=== PATIENT | female | born 1970 | race Caucasian/White ===

== ENCOUNTER 2016-04-25 10:45 | Emergency (ER) | payer MEDICAID ==
[2016-04-25] MEDS ORDERED: ALBUTEROL NEB 2.5 MG/3 ML INH STA (11:47)
[2016-04-25] MEDS ORDERED: DEXAMETHASONE 10 MG/ML VIAL PO STA (11:47)
[2016-04-25] MEDS ORDERED: HYDROcod/ACETAM 5/325 MG TABLET PO STA (11:47)
[2016-04-25] MEDS ORDERED: CHERRY SYRUP 10 ML UDC PO ONE (11:54)
[2016-04-25] MEDS ORDERED: DEXAMETHASONE 10 MG/ML VIAL ONE (11:54)
[2016-04-25] MEDS ORDERED: HYDROcod/ACETAM 5/325 MG TABLET ONE (11:54)
[2016-04-25] MEDS ORDERED: ALBUTEROL NEB 2.5 MG/3 ML INH ONE (12:07)
== END 2016-04-25 12:26 | disposition home or self-care (01) ==
DX: J06.9 Acute upper respiratory infection, unspecified (principal); H92.03 Otalgia, bilateral; G40.909 Epilepsy, unspecified, not intractable, without status epilepticus; F17.200 Nicotine dependence, unspecified, uncomplicated
CPT/HCPCS: 94640; 99283; A9270; J7613

== ENCOUNTER 2016-06-11 09:58 | Emergency (ER) | payer MEDICAID | END 2016-06-11 12:27 | disposition home or self-care (01) | DX: M54.5 Low back pain (principal); R03.0 Elevated blood-pressure reading, without diagnosis of hypertension; G40.909 Epilepsy, unspecified, not intractable, without status epilepticus; F17.200 Nicotine dependence, unspecified, uncomplicated ==

== ENCOUNTER 2016-08-13 16:00 | Outpatient (CLI) | payer MEDICAID ==
--- NOTE | 2016-08-14 11:28 | XRAY Report ---
THREE-VIEW LUMBAR SPINE: 08/13/2016 CLINICAL INDICATION: Back pain. FINDINGS: AP, lateral, coned-down views of the lumbar spine demonstrate mild degenerative disc and f acet disease, with disk space narrowing worst at L5-S1. There is no evidence of fracture or subluxat ion. IMPRESSION: MILD DEGENERATIVE CHANGES. JOB #: [id number] EXT JOB #:[id number]
== END 2016-08-13 16:01 | disposition home or self-care (01) ==
LOC: DI.N 16:00
PROVIDERS: ATTEND Physician Assistant
DX: M51.36 Other intervertebral disc degeneration, lumbar region (principal); M47.816 Spondylosis without myelopathy or radiculopathy, lumbar region
CPT/HCPCS: 72100

== ENCOUNTER 2016-10-01 15:17 | Inpatient (IN) | payer MEDICAID ==
--- NOTE | 2016-10-01 15:35 | ED Physician Documentation ---
PD HPI NVD - Stated complaint Stated Complaint: ETOH WITHDRAWL - Chief complaint Chief Complaint: General - History obtained from History obtained from: Patient - History of Present Illness Timing - onset: Yesterday Timing - duration: Days (2) Timing - details: Gradual onset, Still present (she had been binge drinking for 1-2 weeks and started with upper abd pain and vomiting 2 days ago, unable to drink and having now withdrawal. Noted some scant blood in emesis this afternoon.) Associated symptoms: Abdominal pain (upper), Other (shaky, nausea, vomtiing, with devleopment of headache after vomiting a lot. Today noted some red blood with vomiting, but only small amount. No history of ulcers/varices. Had been binge drinking for a week or more and stopped 2 days ago. has had withdrawal in the past. She claims seizure last night, but unwitnessed.). No: Fever Contributing factors: No: Sick contact, Bad food, Travel, Recent antibiotics Worsened by: Eating Similar symptoms before: Diagnosis (alcohol withdrawal and gastritis. No history of varices. Denies chronic alcoholism but says it is binge infrequently. ) Review of Systems Constitutional: denies: Fever, Chills Nose: reports: Epistaxis (briefly earlier today after vomtiing). denies: Rhinorrhea / runny nose, Congestion Throat: reports: Sore throat (since vomiting) Cardiac: denies: Chest pain / pressure, Palpitations Respiratory: denies: Dyspnea, Cough GI: reports: Abdominal Pain (upper abdomen), Nausea, Vomiting, Diarrhea, Hematemesis (scant amount today). denies: Bloody / black stool : denies: Dysuria, Frequency Skin: denies: Rash, Lesions Neurologic: reports: Generalized weakness, Headache (since vomiting, denies fall nor head injury), Other (shaky and tremulous). denies: Focal weakness, Numbness, Confused, Altered mental status, Head injury Psychiatric: reports: Anxiety. 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 - Present Medications Home Medications: Ambulatory Orders Medication Instructions Recorded Confirmed Cyclobenzaprine [Flexeril] 10 mg PO QPM PRN 10/01/16 10/01/16 Epinephrine [Epipen 2-Chester] 0.3 mg IJ PRN PRN 10/01/16 10/01/16 Fluoxetine HCl [Prozac] 80 mg PO DAILY 10/01/16 10/01/16 Ibuprofen [Motrin] 800 mg PO TID PRN 10/01/16 10/01/16 lamoTRIgine [LaMICtal] 50 mg PO BID 10/01/16 10/01/16 - Allergies Allergies/Adverse Reactions: Allergies Allergy/AdvReac Type Severity Reaction Status Date / Time pineapple Allergy Anaphylaxis Verified 06/11/16 10:03 shellfish derived Allergy Anaphylaxis Verified 06/11/16 10:03 iodine AdvReac Unknown Verified 06/11/16 10:03 ketorolac tromethamine * AdvReac Unknown Verified 06/11/16 10:03 [From Toradol] - Social History Does the pt smoke?: Yes Smoking Status: Current every day smoker Does the pt drink ETOH?: Yes Does the pt have substance abuse?: Yes Substance Use and Type: Marijuana - Family History Family history: reports: Non contributory - Immunizations Immunizations are current?: Yes PD ED PE NORMAL - Vitals Vital signs reviewed: Yes - General General: Alert and oriented X 3, Well developed/nourished, Other (very anxious, active vomiting without coffe grounds nor blood. shaky/tremulous c/w withdrawal. HR elevated. BP elevated. Has high CIWA score over 20. ) - HEENT HEENT: Atraumatic, PERRL, Ears normal, Pharynx benign, Other (left nostril with small vessel inflammation anteriorly, no active bleeding. Forceful vomiting with head turning red. ) - Neck Neck: Supple, no meningeal sign, No adenopathy, No JVD - Cardiac Cardiac: No murmur. No: RRR (tachycardic but regular) - Respiratory Respiratory: Clear bilaterally - Abdomen Abdomen: Normal bowel sounds, Soft, Non distended, No organomegaly, Other ( moderately obese truncal. Had tenderness in upper abdomen. Lower abd not tender. Bowel sounds hyperactive. 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, No motor deficit, No sensory deficit, Normal speech - Psych Psych: No: Normal affect (anxious and tremulous) Results - Vitals Vitals: Vital Signs - 24 hr 10/01/16 10/01/16 10/01/16 15:20 15:57 16:01 Temperature 37.2 C Heart Rate 129 H 122 H Respiratory 22 28 H Rate Blood Pressure 162/124 H 144/102 H O2 Saturation 98 98 10/01/16 10/01/16 10/01/16 16:26 17:01 18:37 Temperature Heart Rate 113 H 111 H 106 H Respiratory 18 18 18 Rate Blood Pressure 153/89 H 137/86 H 153/82 H O2 Saturation 96 97 97 10/01/16 10/01/16 10/01/16 19:18 20:10 20:43 Temperature Heart Rate 102 H 103 H 107 H Respiratory 18 18 19 Rate Blood Pressure 136/87 H 130/78 137/89 H O2 Saturation 96 97 96 Oxygen O2 Source Room air - Labs Labs: Laboratory Tests 10/01/16 10/01/16 10/01/16 15:36 15:36 17:28 WBC 25.2 H RBC 5.18 Hgb 15.2 Hct 44.6 MCV 86.1 MCH 29.3 MCHC 34.0 RDW 14.2 Plt Count 329 MPV 7.9 Neut # 21.8 H Lymph # 2.5 Coos # 0.9 Eos # 0.0 Baso # 0.1 Absolute Nucleated RBC 0.00 Nucleated RBCs 0.0 Manual Slide Review Indicated Platelet Estimate NORMAL (130-450,000) Platelet Morphology NORMAL APPEARANCE RBC Morph Micro Appear NORMAL APPEARANCE Sodium 132 L Potassium 3.0 L Chloride 87 L Carbon Dioxide 17 L Anion Gap 28.0 H BUN 16 Creatinine 1.1 H Estimated GFR (MDRD) 53 L Glucose 155 H Calcium 8.9 Magnesium 1.5 L Total Bilirubin 1.3 H AST 72 H ALT < 10 L Alkaline Phosphatase 77 Total Protein 8.1 Albumin 4.7 Globulin 3.4 Albumin/Globulin Ratio 1.4 Lipase 22 Urine Color YELLOW Urine Clarity CLEAR Urine pH 5.5 Ur Specific Monument 1.010 Urine Protein NEGATIVE Urine Glucose (UA) NEGATIVE Urine Ketones NEGATIVE Urine Occult Blood MODERATE H Urine Nitrite NEGATIVE Urine Bilirubin NEGATIVE Urine Urobilinogen 0.2 (NORMAL) Ur Leukocyte Esterase NEGATIVE Urine RBC 0-5 Urine WBC 0-3 Ur Squamous Epith Cells FEW Squamous Urine Bacteria Few Urine Casts 0-2 Hyaline Casts Ur Microscopic Review INDICATED Urine Culture Comments NOT INDICATED Urine Opiates Screen NEGATIVE Ur Oxycodone Screen NEGATIVE Urine Methadone Screen NEGATIVE Ur Propoxyphene Screen NEGATIVE Ur Barbiturates Screen NEGATIVE Ur Tricyclics Screen NEGATIVE Ur Phencyclidine Scrn NEGATIVE Ur Amphetamine Screen NEGATIVE U Methamphetamines Scrn NEGATIVE U Benzodiazepines Scrn NEGATIVE Urine Cocaine Screen NEGATIVE U Cannabinoids Screen POSITIVE H Ethyl Alcohol < 5.0 PD MEDICAL DECISION MAKING - ED course Complexity details: reviewed results, re-evaluated patient, considered differential (seems like withdrawal from recent binge drinking episode, but with gastritis symptoms and repetitive vomiting, which will limit ability to treat outpatient. 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) Departure - Departure Disposition: [facility] DC/Xfer Clinical Impression: Hypokalemia, Hypomagnesemia Alcohol withdrawal Qualifiers: Complication of substance-induced condition: uncomplicated Qualified Code(s): F10.230 - Alcohol dependence with withdrawal, uncomplicated Alcoholic gastritis Qualifiers: Chronicity: acute Gastritis bleeding: presence of bleeding unspecified Qualified Code(s): K29.20 - Alcoholic gastritis without bleeding Intractable vomiting with nausea Qualifiers: Vomiting type: unspecified Qualified Code(s): R11.2 - Nausea with vomiting, unspecified Condition: Stable Record reviewed to determine appropriate education?: Yes Discharge Date/Time: 10/01/16 22:19
[2016-10-01] MEDS ORDERED: LORazepam 2 MG/ML SYRINGE ONE ×5 (15:50→20:53)
[2016-10-01] MEDS ORDERED: LORazepam 2 MG/ML SYRINGE IVP STA ×5 (15:50→20:50)
[2016-10-01] MEDS ORDERED: ONDANSETRON 4 MG/2 ML VIAL IVP STA ×2 (15:50→20:50)
[2016-10-01] MEDS ORDERED: ONDANSETRON 4 MG/2 ML VIAL ONE ×2 (15:50→20:54)
[2016-10-01] MEDS ORDERED: SODIUM CHLORIDE 0.9% 1,000 ML IV ONE (15:50)
[2016-10-01] MEDS ORDERED: FOLIC ACID INJ 1 MG, THIAMINE INJ 100 MG, MAGNESIUM SULFATE 2 GM, MULTIVITAMIN 10 ML in... IV STA ×5 (15:51)
[2016-10-01 16:02] LABS: BASOPHILS # (AUTO) 0.1 10^3/uL (0.0-0.1); BASOPHILS % (AUTO) 0.2 %; HCT - HEMATOCRIT 44.6 % (37.0-47.0); HGB - HEMOGLOBIN 15.2 g/dL (12.0-16.0); LYMPHOCYTES # (AUTO) 2.5 10^3/uL (1.5-3.5); LYMPHOCYTES % (AUTO) 9.9 %; MEAN CORPUSCULAR HEMOGLOBIN 29.3 pg (27.0-31.0); MEAN CORPUSCULAR VOLUME 86.1 fL (81.0-99.0); MEAN PLATELET VOLUME 7.9 fL (7.9-10.8); MONOCYTES # (AUTO) 0.9 10^3/uL (0.0-1.0); MONOCYTES % (AUTO) 3.4 %; NEUTROPHILS # (AUTO) 21.8 10^3/uL (1.5-6.6); NEUTROPHILS % (AUTO) 86.5 %; RED BLOOD COUNT 5.18 10^6/uL (4.20-5.40); RED CELL DISTRIBUTION WIDTH 14.2 % (12.0-15.0); UNCORRECTED WHITE BLOOD COUNT 25.2 x10^3/uL; WHITE BLOOD COUNT 25.2 x10^3/uL (4.8-10.8)
[2016-10-01] MEDS ORDERED: HYDROmorphone 1 MG/ML SYRINGE IVP STA ×2 (16:16→17:57)
[2016-10-01] MEDS ORDERED: HYDROmorphone 1 MG/ML SYRINGE ONE ×2 (16:18→18:18)
[2016-10-01 16:28] LABS: PLATELET ESTIMATE, MANUAL NORMAL (130-450,000) (NORMAL); PLATELET MORPHOLOGY NORMAL APPEARANCE (NORMAL)
[2016-10-01 16:58] LABS: ALBUMIN/GLOBULIN RATIO 1.4 (1.0-2.2); BILIRUBIN,TOTAL 1.3 mg/dL (0.2-1.0); BUN - BLOOD UREA NITROGEN 16 mg/dL (6-20); CALCIUM 8.9 mg/dL (8.5-10.3); CARBON DIOXIDE - CO2 17 mmol/L (21-32); CHLORIDE 87 mmol/L (101-111); CREATININE 1.1 mg/dL (0.4-1.0); GFR - MDRD 53 (>89); GLUCOSE 155 mg/dL (70-100); LIPASE 22 U/L (22-51); MAGNESIUM 1.5 mg/dL (1.7-2.8); SODIUM 132 mmol/L (135-145); TOTAL PROTEIN 8.1 g/dL (6.7-8.2)
[2016-10-01] MEDS ORDERED: MAGNESIUM SULFATE 2 GRAM 50 ML IV ONE ×2 (17:22→17:33)
[2016-10-01 17:34] LABS: BILIRUBIN,URINE NEGATIVE (NEGATIVE); PH,URINE 5.5 PH (5.0-7.5)
[2016-10-01 17:36] LABS: UA w/ MICROSCOPIC CHARGE YES
[2016-10-01] MEDS ORDERED: METOCLOPRAMIDE 10 MG/2 ML VIAL IVP STA (17:39)
[2016-10-01] MEDS ORDERED: FAMOTIDINE 20 MG/50 ML 50 ML IV ONE ×2 (17:39→18:17)
[2016-10-01 17:48] LABS: UR CULTURE IF IND NOT INDICATED; WBC,URINE 0-3 /HPF (0-5)
[2016-10-01] MEDS ORDERED: METOCLOPRAMIDE 10 MG/2 ML VIAL ONE (18:17)
[2016-10-01] MEDS ORDERED: CYCLOBENZAPRINE 10 MG TABLET PO PRN (21:21)
[2016-10-01] MEDS ORDERED: PROMETHAZINE 25 MG/1 ML VIAL IM PRN (21:22)
[2016-10-01] MEDS ORDERED: MAGNESIUM SULFATE 2 GRAM 50 ML IV SCH (21:22)
[2016-10-01] MEDS ORDERED: SODIUM CHLORIDE FLUSH 0.9% 10 ML SYRINGE IVP PRN (21:22)
[2016-10-01] MEDS ORDERED: PROCHLORPERAZINE 10 MG/2 ML VIAL IVP PRN (21:22)
[2016-10-01] MEDS ORDERED: HYDROcod/ACETAM 10 MG/325 MG TABLET PO PRN (21:22)
[2016-10-01] MEDS ORDERED: SODIUM CHLORIDE 0.9% 1,000 ML IV SCH (21:22)
[2016-10-01] MEDS: FAMOTIDINE 20 MG/50 ML 50 ML IV SCH (22:05)
[2016-10-01] MEDS: LORazepam 2 MG/ML SYRINGE IVP PRN (22:38)
[2016-10-01] MEDS: HYDROmorphone 1 MG/ML SYRINGE IVP PRN (22:42)
[2016-10-01] MEDS: PANTOPRAZOLE 40 MG VIAL IVP SCH (22:44)
[2016-10-01] MEDS: SUCRALFATE 1 GM/10 ML UDC PO SCH (22:44)
[2016-10-01] MEDS: NS W/20 MEQ KCL 1,000 ML IV SCH (23:02)
[2016-10-01] MEDS: POTASSIUM CHLOR 10 MEQ/100 ML 100 ML IV SCH (23:03)
[2016-10-01] MEDS: SODIUM CHLORIDE FLUSH 0.9% 10 ML SYRINGE IVP SCH (23:05)
[2016-10-02] MEDS: POTASSIUM CHLOR 10 MEQ/100 ML 100 ML IV SCH ×5 (00:02→04:00)
[2016-10-02] MEDS: LORazepam 2 MG/ML SYRINGE IVP PRN ×8 (00:27→13:44)
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
[2016-10-02] MEDS: SODIUM CHLORIDE FLUSH 0.9% 10 ML SYRINGE IVP SCH ×3 (03:08→23:07)
[2016-10-02] MEDS: HYDROmorphone 1 MG/ML SYRINGE IVP PRN ×2 (04:11→07:55)
[2016-10-02 04:56] LABS: BASOPHILS % (AUTO) 0.4 %; EOSINOPHILS % (AUTO) 0.1 %; HCT - HEMATOCRIT 35.6 % (37.0-47.0); HGB - HEMOGLOBIN 12.3 g/dL (12.0-16.0); LYMPHOCYTES # (AUTO) 3.6 10^3/uL (1.5-3.5); LYMPHOCYTES % (AUTO) 34.7 %; MEAN CORPUSCULAR HGB CONC 34.5 g/dL (32.0-36.0); MEAN CORPUSCULAR VOLUME 86.9 fL (81.0-99.0); MEAN PLATELET VOLUME 7.5 fL (7.9-10.8); MONOCYTES # (AUTO) 0.4 10^3/uL (0.0-1.0); NEUTROPHILS # (AUTO) 6.3 10^3/uL (1.5-6.6); NEUTROPHILS % (AUTO) 60.8 %; NUCLEATED RED BLOOD CELLS AUTO 0.1 /100WBC; RED BLOOD COUNT 4.09 10^6/uL (4.20-5.40); RED CELL DISTRIBUTION WIDTH 13.6 % (12.0-15.0); UNCORRECTED WHITE BLOOD COUNT 10.4 x10^3/uL; WHITE BLOOD COUNT 10.4 x10^3/uL (4.8-10.8)
[2016-10-02 05:03] LABS: INR 1.1 (0.8-1.2); PT - PROTHROMBIN TIME 12.3 secs (9.9-12.6)
[2016-10-02 05:10] LABS: ALBUMIN/GLOBULIN RATIO 1.4 (1.0-2.2); BILIRUBIN,TOTAL 1.3 mg/dL (0.2-1.0); CALCIUM 7.3 mg/dL (8.5-10.3); CREATININE 0.8 mg/dL (0.4-1.0); MAGNESIUM 2.4 mg/dL (1.7-2.8); PHOSPHORUS 1.7 mg/dL (2.5-4.6); POTASSIUM 3.4 mmol/L (3.5-5.0)
[2016-10-02] MEDS: ONDANSETRON 4 MG/2 ML VIAL IVP PRN ×2 (05:23→11:04)
[2016-10-02] MEDS: SUCRALFATE 1 GM/10 ML UDC PO SCH ×4 (06:23→22:01)
[2016-10-02] MEDS: PANTOPRAZOLE 40 MG VIAL IVP SCH ×2 (06:25→16:25)
[2016-10-02] MEDS ORDERED: POTASSIUM PHOSPHATE 15 MMOL in SODIUM CHLORIDE 0.9% 250 ML IV SCH (07:00)
[2016-10-02] MEDS ORDERED: POTASSIUM CHLORIDE 20 MEQ TABLET PO SCH (07:00)
[2016-10-02] MEDS ORDERED: POTASSIUM PHOSPHATE 15 MMOL in SODIUM CHLORIDE 0.9% 250 ML IV ONE (07:52)
[2016-10-02] MEDS: FAMOTIDINE 20 MG/50 ML 50 ML IV SCH ×2 (07:54→21:11)
[2016-10-02] MEDS: ACETAMINOPHEN 325 MG TABLET PO PRN ×2 (07:56→13:44)
--- NOTE | 2016-10-02 08:09 | PROVIDER PROGRESS NOTE ---
Assessment/Plan - Problem List (1) Alcohol withdrawal Qualifiers: Complication of substance-induced condition: uncomplicated Qualified Code(s ): F10.230 - Alcohol dependence with withdrawal, uncomplicated Assessment/Plan: (1) Alcohol withdrawal Conclusion/Plan: Patient presents after binge drinking for 1-2 weeks with 1/5th of schnapps a day Developed what appears to be an alcoholic gastritis and has not been able to keep anything down including alcohol for 2 days now with persistent nausea and vomiting She reported a seizure on the day prior to admit and had on admit had tremors and anxiety CIWA score in ED greater than 24 admitted to the ICU for CIWA protocol pt looks better this am, she is alert and oriented, no tremor. Plan: Continue CIWA protoco, if remains stable can transfer to the medical floor. IVFs with Banana bag and Saline with K Thiamine Folic Acid MV Magnesium Social work consult Patient counselled (2) Alcoholic gastritis Conclusion/Plan: Patient presenting with abdominal pain (epigastric) with reflux and intractable nausea and vomiting x2 days WBC elevated at 25K with hyponatremia, hypokalemia and anion gap metabolic acidosis No fevers to suggest viral or bacterial gastritis Plan: IVFs Electrolyte replacement IV protonix, IV Pepcid and carafate - change to PO PPI 10/02 Monitor electrolytes and CBC continue antiemetics (3) Alcoholic hepatitis Conclusion/Plan: Elevated bili and AST Binge drinking for 1-[address] abd from 2015 shows fatty infiltration of the liver Plan: Encourage abstinence from alcohol Counselling (4) High anion gap metabolic acidosis Conclusion/Plan: Acidosis is likely secondary to alcoholic ketoacidosis as patient has been binge drinking and not eating very well, significantly improved with IVF overnight. 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 to 1.1 Likely prerenal secondary to dehydration from intractable nausea and vomiting Improved with IVF Plan: Avoid nephrotoxic agents (7) Hypokalemia and hypophosphatemia Conclusion/Plan: K was 3.0 on presentation Likely secondary to intractable nausea and vomiting from alcoholic gastritis pt received k replacement, still slightly low this am Plan: Kphos 15meq IV repeat labs in am advance to regular diet (8) Hypomagnesemia Conclusion/Plan: Likely secondary to alcoholism replaced IV (9) Seizure disorder Conclusion/Plan: History of seizure disorder On lamictal Had seizure yesterday likely secondary to alcohol withdrawal Will monitor for further seizure activity Continue home lamictal (10) Tobacco abuse Conclusion/Plan: Patient smoke 1/2 PPD Counselled Nicotine patch 11. Obesity bmi 33 recommend increase activity (12) Prophylactic use of low molecular weight heparin for venous thromboembolism Conclusion/Plan: Lovenox while hospitalized - Current Meds Current Meds: Current Medications Generic Name Dose Route Start Last Admin Trade Name Freq PRN Reason Stop Dose Admin Acetaminophen 650 mg 10/01/16 21:22 10/02/16 07:56 Tylenol PO 650 mg Q4HR PRN Administration Pain 1 to 4 Potassium Chloride/Sodium Chloride 1,000 mls @ 100 mls/hr 10/01/16 22:00 23:02 Normal Saline 0.9% W/20 Meq Kcl IV 100 mls/hr .Q10H ARA Administration Famotidine 50 mls @ 100 mls/hr 10/01/16 22:00 10/02/16 07:54 Pepcid 20 Mg/50 Ml IV 100 mls/hr BID ARA Administration Potassium Phosphate 15 mmol/ 255 mls @ 63 mls/hr 10/02/16 07:00 10/02/16 06:25 Sodium Chloride IV 10/02/16 12:00 63 mls/hr ONCE ARA Administration Protocol Potassium Phosphate 15 mmol/ 255 mls @ 42.5 mls/hr 10/02/16 07:52 10/02/16 07: 58 Sodium Chloride IV 10/02/16 13:51 Not Given ONCE ONE Lorazepam 1 - 2 mg 10/01/16 21:22 10/02/16 07:54 Ativan Inj IVP 2 mg Q30M PRN Administration CIWA>8 Protocol Ondansetron HCl 4 mg 10/01/16 21:22 10/02/16 05:23 Zofran Inj IVP 4 mg Q6HR PRN Administration Nausea / Vomiting Pantoprazole Sodium 40 mg 10/01/16 22:00 10/02/16 06:25 Protonix IVP 40 mg BIDAC ARA Administration Potassium Chloride 40 meq 10/02/16 07:00 10/02/16 06:24 K-Dur PO 10/02/16 11:00 40 meq ONCE ARA Administration Protocol Prochlorperazine Edisylate 10 mg 10/01/16 21:22 10/01/16 23:09 Compazine Inj IVP 10 mg Q6HR PRN Administration Nausea / Vomiting Sodium Chloride 10 ml 10/01/16 22:00 10/02/16 03:08 Normal Saline Flush 0.9% IVP Not Given Q8HR ARA Sucralfate 1 gm 10/01/16 22:00 10/02/16 06:23 Carafate PO 1 gm 0700,1100,1600,2200 ARA Administration - Lab Result Lab results reviewed: Yes Fish Bone Diagrams: 10/02/16 04:43 10/02/16 04:43 - Additional Planning My Orders: My Active Orders 10/02/16 07:52 Potassium Phosphate 15 mmol Sodium Chloride 0.9% [Normal Saline 0.9%] 250 ml IV ONCE Subjective - Subjective Patient Reports: Resting Comfortably, No Complaints, Other (pt states she is missing a left upper tooth and can't get it fixed for a month. She stated drinking because she states "it's embarrasing". Smokes tobacco, and wants nicotine patch. Is hungry and wants a regular diet) Objective Vital Signs: Vital Signs - 24 hr 10/01/16 10/01/16 10/01/16 21:52 22:15 22:30 Temperature Heart Rate 103 H Heart Rate [ 101 H 104 H Monitoring electrodes] Respiratory 18 21 20 Rate Blood Pressure 133/84 H Blood Pressure 156/86 H 160/87 H [Right Brachial artery] O2 Saturation 96 98 98 10/01/16 10/02/16 10/02/16 23:00 00:00 01:00 Temperature 37.1 C Heart Rate Heart Rate [ 103 H 105 H 103 H Monitoring electrodes] Respiratory 21 19 19 Rate Blood Pressure Blood Pressure 135/99 H 138/110 H 131/81 H [Right Brachial artery] O2 Saturation 99 96 97 10/02/16 10/02/16 10/02/16 02:00 03:00 04:00 Temperature Heart Rate Heart Rate [ 96 97 98 Monitoring electrodes] Respiratory 18 17 20 Rate Blood Pressure Blood Pressure 126/75 141/87 H 162/88 H [Right Brachial artery] O2 Saturation 97 97 97 10/02/16 10/02/16 10/02/16 05:00 05:43 06:48 Temperature 37.1 C Heart Rate Heart Rate [ 92 99 105 H Monitoring electrodes] Respiratory 22 20 21 Rate Blood Pressure Blood Pressure 110/97 H 121/71 138/91 H [Right Brachial artery] O2 Saturation 98 95 98 10/02/16 07:28 Temperature 37.3 C Heart Rate Heart Rate [ 93 Monitoring electrodes] Respiratory 19 Rate Blood Pressure Blood Pressure 139/81 H [Right Brachial artery] O2 Saturation 98 Oxygen O2 Source Room air I&O (Last 24 Hrs): Intake and Output Totals x24h 09/30/16 10/01/16 10/02/16 23:59 23:59 23:59 Intake Total 500 3064 Balance 500 3064 General: Alert, Oriented x3, Cooperative, No acute distress Neuro: Alert Cardiovascular: Regular rate, No murmurs Respiratory: Chest non-tender, No respiratory distress, Breath sounds nml Abdomen: Normal bowel sounds, Soft, No tenderness Extremities: No clubbing, No edema, No tenderness/swelling - Results Results: Laboratory Results WBC 10.4 x10^3/uL (4.8-10.8) 10/02/16 04:43 RBC 4.09 10^6/uL (4.20-5.40) L 10/02/16 04:43 Hgb 12.3 g/dL (12.0-16.0) 10/02/16 04:43 Hct 35.6 % (37.0-47.0) L 10/02/16 04:43 MCV 86.9 fL (81.0-99.0) 10/02/16 04:43 MCH 30.0 pg (27.0-31.0) 10/02/16 04:43 MCHC 34.5 g/dL (32.0-36.0) 10/02/16 04:43 RDW 13.6 % (12.0-15.0) 10/02/16 04:43 Plt Count 199 10^3/uL (130-450) 10/02/16 04:43 MPV 7.5 fL (7.9-10.8) L 10/02/16 04:43 Neut # 6.3 10^3/uL (1.5-6.6) 10/02/16 04:43 Lymph # 3.6 10^3/uL (1.5-3.5) H 10/02/16 04:43 Williamson # 0.4 10^3/uL (0.0-1.0) 10/02/16 04:43 Eos # 0.0 10^3/uL (0.0-0.7) 10/02/16 04:43 Baso # 0.0 10^3/uL (0.0-0.1) 10/02/16 04:43 Absolute Nucleated RBC 0.01 x10^3/uL 10/02/16 04:43 Nucleated RBCs 0.1 /100WBC 10/02/16 04:43 Manual Slide Review Indicated 10/01/16 15:36 Platelet Estimate NORMAL (130-450,000) (NORMAL) 10/01/16 15:36 Platelet Morphology NORMAL APPEARANCE (NORMAL) 10/01/16 15:36 RBC Morph Micro Appear NORMAL APPEARANCE (NORMAL) 10/01/16 15:36 PT 12.3 secs (9.9-12.6) 10/02/16 04:43 INR 1.1 (0.8-1.2) 10/02/16 04:43 Sodium 136 mmol/L (135-145) 10/02/16 04:43 Potassium 3.4 mmol/L (3.5-5.0) L 10/02/16 04:43 Chloride 102 mmol/L (101-111) 10/02/16 04:43 Carbon Dioxide 25 mmol/L (21-32) 10/02/16 04:43 Anion Gap 9.0 (6-13) 10/02/16 04:43 BUN 12 mg/dL (6-20) 10/02/16 04:43 Creatinine 0.8 mg/dL (0.4-1.0) 10/02/16 04:43 Estimated GFR (MDRD) 77 (>89) L 10/02/16 04:43 Glucose 95 mg/dL (70-100) 10/02/16 04:43 Calcium 7.3 mg/dL (8.5-10.3) L 10/02/16 04:43 Phosphorus 1.7 mg/dL (2.5-4.6) L 10/02/16 04:43 Magnesium 2.4 mg/dL (1.7-2.8) 10/02/16 04:43 Total Bilirubin 1.3 mg/dL (0.2-1.0) H 10/02/16 04:43 GGT 68 IU/L (8-38) H 10/02/16 04:43 AST 48 IU/L (10-42) H 10/02/16 04:43 ALT 38 IU/L (10-60) 10/02/16 04:43 Alkaline Phosphatase 59 IU/L (42-121) 10/02/16 04:43 Total Protein 6.0 g/dL (6.7-8.2) L 10/02/16 04:43 Albumin 3.5 g/dL (3.2-5.5) 10/02/16 04:43 Globulin 2.5 g/dL (2.1-4.2) 10/02/16 04:43 Albumin/Globulin Ratio 1.4 (1.0-2.2) 10/02/16 04:43 Lipase 22 U/L (22-51) 10/01/16 15:36 Urine Color YELLOW 10/01/16 17:28 Urine Clarity CLEAR (CLEAR) 10/01/16 17:28 Urine pH 5.5 PH (5.0-7.5) 10/01/16 17:28 Ur Specific Boyd 1.010 (1.002-1.030) 10/01/16 17:28 Urine Protein NEGATIVE mg/dL (NEGATIVE) 10/01/16 17:28 Urine Glucose (UA) NEGATIVE mg/dL (NEGATIVE) 10/01/16 17:28 Urine Ketones NEGATIVE mg/dL (NEGATIVE) 10/01/16 17:28 Urine Occult Blood MODERATE (NEGATIVE) H 10/01/16 17:28 Urine Nitrite NEGATIVE (NEGATIVE) 10/01/16 17:28 Urine Bilirubin NEGATIVE (NEGATIVE) 10/01/16 17:28 Urine Urobilinogen 0.2 (NORMAL) E.U./dL (NORMAL) 10/01/16 17:28 Ur Leukocyte Esterase NEGATIVE (NEGATIVE) 10/01/16 17:28 Urine RBC 0-5 /HPF (0-5) 10/01/16 17:28 Urine WBC 0-3 /HPF (0-5) 10/01/16 17:28 Ur Squamous Epith Cells FEW Squamous (<= Few) 10/01/16 17:28 Urine Bacteria Few /HPF (None Seen) 10/01/16 17:28 Urine Casts 0-2 Hyaline Casts /LPF 10/01/16 17:28 Ur Microscopic Review INDICATED 10/01/16 17:28 Urine Culture Comments NOT INDICATED 10/01/16 17:28 Urine Opiates Screen NEGATIVE (NEGATIVE) 10/01/16 17:28 Ur Oxycodone Screen NEGATIVE (NEGATIVE) 10/01/16 17:28 Urine Methadone Screen NEGATIVE (NEGATIVE) 10/01/16 17:28 Ur Propoxyphene Screen NEGATIVE (NEGATIVE) 10/01/16 17:28 Ur Barbiturates Screen NEGATIVE (NEGATIVE) 10/01/16 17:28 Ur Tricyclics Screen NEGATIVE (NEGATIVE) 10/01/16 17:28 Ur Phencyclidine Scrn NEGATIVE (NEGATIVE) 10/01/16 17:28 Ur Amphetamine Screen NEGATIVE (NEGATIVE) 10/01/16 17:28 U Methamphetamines Scrn NEGATIVE (NEGATIVE) 10/01/16 17:28 U Benzodiazepines Scrn NEGATIVE (NEGATIVE) 10/01/16 17:28 Urine Cocaine Screen NEGATIVE (NEGATIVE) 10/01/16 17:28 U Cannabinoids Screen POSITIVE (NEGATIVE) H 10/01/16 17:28 Ethyl Alcohol < 5.0 mg/dL 10/01/16 15:36
[2016-10-02] MEDS ORDERED: MULTIVITAMIN 10 ML, THIAMINE INJ 100 MG, FOLIC ACID INJ 1 MG in SODIUM CHLORIDE 0.9% 1,... IV SCH (09:00)
[2016-10-02] MEDS: ENOXAPARIN 40 MG/0.4 ML SYRINGE SUBQ SCH (09:14)
[2016-10-02] MEDS: NS W/20 MEQ KCL 1,000 ML IV SCH ×2 (09:14→19:23)
[2016-10-02] MEDS: FLUoxetine 10 MG CAPSULE PO SCH (09:15)
[2016-10-02] MEDS: NICOTINE 14 MG PATCH TOP SCH (09:17)
[2016-10-02] MEDS: POLYETHYLENE GLYCOL 3350 17 GM PACKET PO SCH (09:17)
[2016-10-02] MEDS: lamoTRIgine 25 MG TABLET PO SCH ×2 (09:43→21:11)
[2016-10-02 10:47] LABS: CALCIUM, IONIZED 0.99 mmol/L (1.15-1.33); VBG PH 7.392 (7.31-7.41)
[2016-10-02 10:58] LABS: PHOSPHORUS 1.8 mg/dL (2.5-4.6); POTASSIUM 3.5 mmol/L (3.5-5.0)
[2016-10-02] MEDS: HYDROcod/ACETAM 5/325 MG TABLET PO PRN ×3 (11:02→19:22)
[2016-10-02] MEDS: THIAMINE 100 MG TABLET PO SCH (11:21)
[2016-10-02] MEDS: PRENATAL VITAMIN TABLET PO SCH (11:21)
[2016-10-02] MEDS ORDERED: POTASSIUM CHLORIDE 20 MEQ TABLET PO ONE (12:00)
[2016-10-02] MEDS ORDERED: CALCIUM GLUCONATE 2,000 MG in SODIUM CHLORIDE 0.9% 100ML 100 ML IV ONE (12:30)
[2016-10-02] MEDS: NEUTRA-PHOS 250 MG TABLET PO SCH ×2 (12:32→14:54)
[2016-10-02] MEDS ORDERED: QUEtiapine 25 MG TABLET PO SCH ×2 (16:15→21:00)
[2016-10-02 16:41] LABS: HEMOGLOBIN A1C 0.55 g/dL
[2016-10-02] MEDS ORDERED: ZOLPIDEM 5 MG TABLET PO PRN (20:24)
[2016-10-03] MEDS: HYDROcod/ACETAM 5/325 MG TABLET PO PRN ×3 (00:07→09:04)
[2016-10-03] MEDS: ONDANSETRON 4 MG/2 ML VIAL IVP PRN (00:10)
[2016-10-03 02:23] LABS: BILIRUBIN,URINE NEGATIVE (NEGATIVE); PH,URINE 6.5 PH (5.0-7.5)
[2016-10-03 02:51] LABS: UA w/ MICROSCOPIC CHARGE YES
[2016-10-03 02:58] LABS: UR CULTURE IF IND NOT INDICATED; WBC,URINE 0-3 /HPF (0-5)
[2016-10-03] MEDS ORDERED: PROCHLORPERAZINE 10 MG/2 ML VIAL IVP SCH (04:48)
[2016-10-03] MEDS ORDERED: BUTALB/ACETAM/CAFF 50/325/40MG TABLET PO SCH (04:48)
[2016-10-03 05:01] LABS: BASOPHILS % (AUTO) 0.5 %; EOSINOPHILS # (AUTO) 0.1 10^3/uL (0.0-0.7); EOSINOPHILS % (AUTO) 1.3 %; HCT - HEMATOCRIT 33.4 % (37.0-47.0); HGB - HEMOGLOBIN 11.5 g/dL (12.0-16.0); LYMPHOCYTES # (AUTO) 2.5 10^3/uL (1.5-3.5); LYMPHOCYTES % (AUTO) 40.9 %; MEAN CORPUSCULAR HEMOGLOBIN 29.8 pg (27.0-31.0); MEAN CORPUSCULAR HGB CONC 34.3 g/dL (32.0-36.0); MEAN CORPUSCULAR VOLUME 86.8 fL (81.0-99.0); MEAN PLATELET VOLUME 7.4 fL (7.9-10.8); MONOCYTES # (AUTO) 0.3 10^3/uL (0.0-1.0); MONOCYTES % (AUTO) 4.6 %; NEUTROPHILS # (AUTO) 3.2 10^3/uL (1.5-6.6); NEUTROPHILS % (AUTO) 52.7 %; RED BLOOD COUNT 3.85 10^6/uL (4.20-5.40); RED CELL DISTRIBUTION WIDTH 13.5 % (12.0-15.0); UNCORRECTED WHITE BLOOD COUNT 6.1 x10^3/uL; WHITE BLOOD COUNT 6.1 x10^3/uL (4.8-10.8)
[2016-10-03 05:20] LABS: ALBUMIN/GLOBULIN RATIO 1.3 (1.0-2.2); BILIRUBIN,TOTAL 0.6 mg/dL (0.2-1.0); CALCIUM 8.1 mg/dL (8.5-10.3); CREATININE 0.8 mg/dL (0.4-1.0); MAGNESIUM 1.7 mg/dL (1.7-2.8); PHOSPHORUS 2.9 mg/dL (2.5-4.6); POTASSIUM 3.5 mmol/L (3.5-5.0)
[2016-10-03 05:27] LABS: CALCIUM, IONIZED 1.03 mmol/L (1.15-1.33); VBG PH 7.468 (7.31-7.41)
[2016-10-03] MEDS: NS W/20 MEQ KCL 1,000 ML IV SCH ×2 (05:35→05:36)
[2016-10-03] MEDS: SODIUM CHLORIDE FLUSH 0.9% 10 ML SYRINGE IVP SCH (06:08)
[2016-10-03] MEDS: SUCRALFATE 1 GM/10 ML UDC PO SCH (07:03)
[2016-10-03] MEDS: PANTOPRAZOLE 40 MG VIAL IVP SCH (07:03)
--- NOTE | 2016-10-03 08:15 | Discharge Plan ---
Discharge Plan Disposition: 01 Home, Self Care Condition: Stable Diet: Regular (Stop drinking alcohol, participate in AA. FU with your PCP as needed.) No Smoking: If you smoke, Please STOP! Call for help.
[2016-10-03] MEDS: THIAMINE 100 MG TABLET PO SCH (08:39)
[2016-10-03] MEDS: NICOTINE 14 MG PATCH TOP SCH (08:40)
[2016-10-03] MEDS: FLUoxetine 10 MG CAPSULE PO SCH (08:42)
[2016-10-03] MEDS: lamoTRIgine 25 MG TABLET PO SCH (08:43)
[2016-10-03] MEDS: FAMOTIDINE 20 MG/50 ML 50 ML IV SCH (08:44)
[2016-10-03] MEDS: ENOXAPARIN 40 MG/0.4 ML SYRINGE SUBQ SCH (08:44)
[2016-10-03] MEDS: POLYETHYLENE GLYCOL 3350 17 GM PACKET PO SCH (08:45)
[2016-10-03] MEDS: PRENATAL VITAMIN TABLET PO SCH (09:06)
[2016-10-03 10:20] VITALS: BP 147/93
[2016-10-03] MEDS ORDERED: QUEtiapine 25 MG TABLET PO SCH (21:00)
--- NOTE | 2016-10-04 11:02 | DISCHARGE SUMMARY ---
Date of admit 10/02/16 Date of discharge 10/03/16 DISCHARGE DIAGNOSES 1. Alcohol withdrawal. 2. Alcoholic gastritis. 3. Alcoholic hepatitis. 4. High anion gap metabolic acidosis and alcoholic ketoacidosis. 5. Seizure disorder. 6. Tobacco dependence. BRIEF HISTORY OF PRESENT ILLNESS: The patient is a 45-year-old female with a past medical history significant for remote history of seizures, recurrent UTIs , adenoma of left adrenal gland, PTSD, depression, and alcohol dependence, binge drinking. She presented to the emergency department with nausea, vomiting , and reported having a seizure on the day prior to admission. HOSPITAL COURSE 1. Alcohol withdrawal. The patient presented after binge drinking for 1-2 weeks a sip of Schnapps a day. She presented with alcoholic gastritis and reported having a seizure. She had significant tremor and anxiety, and scored high on CIWA in the emergency department. She was admitted to the ICU for alcohol withdrawal and possible seizure. She was placed on CIWA protocol and was treated with Ativan. The following day, she appeared comfortable, had no tremor. I suspect she had anxiety associated with not drinking. She was treated with MDI thiamine, folate. 2. Alcoholic gastritis. Patient presented with nausea, vomiting, elevated white count, hyponatremia, hypokalemia, anion gap metabolic acidosis. She improved fairly rapidly with IV fluid, electrolyte replacement. She was treated with IV Protonix, IV Pepcid and Carafate. The following day, she was tolerating a regular diet and asking for extra meals and snacks. Her medication was changed to oral and she has remained stable. 3. Alcoholic hepatitis. Elevated bilirubin and AST, suspect this is related to alcohol use. She was counseled to quit drinking. 4. High anion gap metabolic acidosis, likely secondary to alcoholic ketoacidosis , binge drinking and not eating. This improved rapidly with IV fluid and electrolyte correction. 5. History of seizure disorder, on Lamictal. This was continued. She has had no seizure activity in the hospital. 6. Tobacco dependence. Recommend cessation. DISCHARGE MEDICATIONS Patient was instructed to continue her home medications, which include: 1. Prozac 80 mg daily. 2. Flexeril 10 mg nightly. 3. Lamictal 50 mg twice daily. 4. Ibuprofen as needed. MTDD
== END 2016-10-03 10:00 | disposition home or self-care (01) | DRG 897 ==
LOC: ED 15:17 → MS 21:22 → ICU 22:04
PROVIDERS: ADMIT Internal Medicine; ATTEND Internal Medicine
DX: F10.239 Alcohol dependence with withdrawal, unspecified (principal); E87.2 Acidosis; N17.9 Acute kidney failure, unspecified; T51.0X1A Toxic effect of ethanol, accidental (unintentional), initial encounter; G25.2 Other specified forms of tremor; K29.20 Alcoholic gastritis without bleeding; K70.10 Alcoholic hepatitis without ascites; F41.9 Anxiety disorder, unspecified; E86.0 Dehydration; E87.6 Hypokalemia; E83.42 Hypomagnesemia; G40.909 Epilepsy, unspecified, not intractable, without status epilepticus; F43.10 Post-traumatic stress disorder, unspecified; F32.9 Major depressive disorder, single episode, unspecified; G89.29 Other chronic pain; M54.2 Cervicalgia; F17.210 Nicotine dependence, cigarettes, uncomplicated; Z87.440 Personal history of urinary (tract) infections; Z87.828 Personal history of other (healed) physical injury and trauma; Y92.9 Unspecified place or not applicable
CPT/HCPCS: 36415; 80053; 80306; 80320; 81001; 81003; 82310; 82330; 82977; 83036; 83690; 83735; 84100; 84132; 85025; 85610; 87086; 87150; 96365; 96366; 96367; 96368; 96375; 96376; 99285